=== PATIENT | male | born 1955 | race Caucasian/White ===

== ENCOUNTER 2019-08-13 12:54 | Emergency (ER) | payer BC ==
[~2019-08-13] VITALS: Ht 182.9 cm; Wt 77.1 kg
--- NOTE | 2019-08-13 13:11 | PHYS DOC ---
Adult General Chief Complaint Chief Complaint: NEURO SYMPTOMS/DEFICITS HPI HPI Patient is a 63-year-old male who presents via EMS with report of altered mental status and neuro deficits that are acute. Last known normal was last night at about 10 PM. found him lying on the floor at about 11 AM this morning and was unable to speak or move his extremities. Additional history is limited as patient is nonverbal and unable to follow commands. Patient reportedly did have recent temporal artery biopsy to evaluate for temporal arteritis.[] Review of Systems Review of Systems Constitutional: No report of fever[] Respiratory: No report of shortness of breath [] Cardiovascular: No additional information not addressed in HPI [] Neurologic: Positive right sided weakness and mental status changes [] Able to fully assess review of systems due to patient mental status. Current Medications Current Medications Current Medications Medications (Trade) Dose Ordered Sig/Alisson Start Time Stop Time Status Last Admin Dose Admin Info (CONTRAST GIVEN -- Rx MONITORING) 1 each PRN DAILY PRN 08/13/19 14:30 08/15/19 14:29 Iohexol (Omnipaque 300 Mg/ml) 75 ml 1X ONCE 08/13/19 14:15 08/13/19 14:16 DC 08/13/19 14:40 75 ML Sodium Chloride 1,000 ml @ 100 mls/hr Q10H 08/13/19 13:15 08/13/19 23:14 08/13/19 14:32 100 MLS/HR Allergies Allergies Allergies Coded Allergies Type Severity Reaction Last Updated Verified ciprofloxacin Allergy Intermediate Unknown 08/13/19 Yes Physical Exam Physical Exam Constitutional: Awake, alert, nonverbal, non-toxic appearance. [] HENT: Normocephalic, atraumatic, bilateral external ears normal, oropharynx moist, no oral exudates, nose normal. [] Eyes: PERRLA, EOMI, conjunctiva normal, no discharge. Nystagmus noted on exam. [] Neck: Normal range of motion, no tenderness, supple. [] Cardiovascular: Regular rate and rhythm[] Lungs & Thorax: Bilateral breath sounds clear to auscultation [] Abdomen: Bowel sounds normal, soft, no tenderness. [] Skin: Warm, dry, no erythema, no rash. [] Extremities: No tenderness, no cyanosis, no clubbing, ROM intact. [] Neurologic: Awake and alert. There is a right-sided tanisha-neglect. Patient having difficulty with following any commands. 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 Unable to further assess neurological status as patient is unable to follow commands and is nonverbal. [] Current Patient Data Vital Signs Vital Signs Date Time Temp Pulse Resp B/P (MAP) Pulse Ox O2 Delivery O2 Flow Rate FiO2 08/13/19 12:54 99.2 56 18 158/55 (89) 99 Room Air 99.2 Lab Values Laboratory Tests Test 08/13/19 13:02 08/13/19 13:09 08/13/19 13:25 Glucose (Fingerstick) 90 mg/dL (70-99) POC Hemoglobin 10.9 g/dL (14-18) L POC Hematocrit 32 % (37-52) L POC Sodium 135 mmol/L (135-145) POC Potassium 4.8 mmol/L (3.5-5.0) POC Chloride 102 mmol/L (98-110) POC Total CO2 26 mmol/L (23-32) Anion Gap 12 mmol/L (6-14) 5 (6-14) L POC Blood Urea Nitrogen 37 mg/dL (8-26) H POC Creatinine 0.8 mg/dL (0.5-1.4) Glucose Level 104 mg/dL (70-99) H 110 mg/dL (70-99) H POC Ionized Calcium (Dk) 1.02 mmol/L (1.13-1.32) L White Blood Count 12.6 x10^3/uL (4.0-11.0) H Red Blood Count 4.22 x10^6/uL (4.30-5.70) L Hemoglobin 11.0 g/dL (13.0-17.5) L Hematocrit 34.4 % (39.0-53.0) L Mean Corpuscular Volume 82 fL (79-100) Mean Corpuscular Hemoglobin 26 pg (25-35) Mean Corpuscular Hemoglobin Concent 32 g/dL (31-37) Red Cell Distribution Width 17.1 % (11.5-14.5) H Platelet Count 228 x10^3/uL (140-400) Neutrophils (%) (Auto) 90 % (31-73) H Lymphocytes (%) (Auto) 6 % (24-48) L Monocytes (%) (Auto) 4 % (0-9) Eosinophils (%) (Auto) 0 % (0-3) Basophils (%) (Auto) 0 % (0-3) Neutrophils # (Auto) 11.4 x10^3/uL (1.8-7.7) H Lymphocytes # (Auto) 0.8 x10^3/uL (1.0-4.8) L Monocytes # (Auto) 0.4 x10^3/uL (0.0-1.1) Eosinophils # (Auto) 0.0 x10^3/uL (0.0-0.7) Basophils # (Auto) 0.0 x10^3/uL (0.0-0.2) Segmented Neutrophils % 82 % (35-66) H Band Neutrophils % 2 % (0-9) Lymphocytes % 11 % (24-48) L Monocytes % 5 % (0-10) Platelet Estimate Adequate (ADEQUATE) Anisocytosis Slight Prothrombin Time 13.9 SEC (11.7-14.0) Prothrombin Time INR 1.1 (0.8-1.1) Activated Partial Thromboplast Time 26 SEC (24-38) Sodium Level 139 mmol/L (136-145) Potassium Level 4.1 mmol/L (3.5-5.1) Chloride Level 102 mmol/L (98-107) Carbon Dioxide Level 32 mmol/L (21-32) Blood Urea Nitrogen 30 mg/dL (8-26) H Creatinine 1.0 mg/dL (0.7-1.3) Estimated GFR (Cockcroft-Gault) 75.7 BUN/Creatinine Ratio 30 (6-20) H Lactic Acid Level 2.5 mmol/L (0.4-2.0) H Calcium Level 8.8 mg/dL (8.5-10.1) Magnesium Level 2.0 mg/dL (1.8-2.4) Total Bilirubin 0.9 mg/dL (0.2-1.0) Aspartate Amino Transferase (AST) 21 U/L (15-37) Alanine Aminotransferase (ALT) 54 U/L (16-63) Alkaline Phosphatase 130 U/L (46-116) H Troponin I Quantitative 0.041 ng/mL (0.000-0.055) Total Protein 6.6 g/dL (6.4-8.2) Albumin 2.5 g/dL (3.4-5.0) L Albumin/Globulin Ratio 0.6 (1.0-1.7) L Ethyl Alcohol Level < 10 mg/dL (0-10) Laboratory Tests 08/13/19 13:25 Laboratory Tests 08/13/19 13:09 08/13/19 13:25 EKG EKG [] Radiology/Procedures Radiology/Procedures [] Impressions: PROCEDURE: CT HEAD WO CONTRAST CT Head W/O Contrast: History: Right-sided weakness Comparison: none Axial images were obtained without contrast. There is wedge-shaped hypoattenuation and loss of the ramos-white matter distinction middle cerebral artery territory consistent with a massive stroke. There is mild mass effect with effacement of most of the sulci and effacement of much of the perimesencephalic cephalic cistern. There is mild 4 mm [id number] midline shift. There is no extra-axial fluid collections hydrocephalus or bleed. Impression: 1. Massive acute left MCA territory infarct. 2. Diffuse edema with swelling and left to right midline shift. End impression The ER physician was notified immediately and I have related these findings to the nurse practitioner. PQRS Compliance Statement: One or more of the following individualized dose reduction techniques were utilized for this examination: 1. Automated exposure control 2. Adjustment of the mA and/or kV according to patient size 3. Use of iterative reconstruction technique FOR INTERNAL CODING PURPOSES Critical result: Findings discussed with the emergency department. RESULT CODE: (C) Electronically signed by: Jan Saunders III, MD (08/13/2019 2:12 PM) [facility] [place] PROCEDURE: CT ANGIOGRAPHY HEAD AND NECK EXAM: CT angiogram of the head and neck with intravenous contrast. HISTORY: Cerebral infarction. TECHNIQUE: Computed tomographic images of the head and neck were obtained following the administration of 75 cc Omnipaque 300 intravenous contrast. Three-dimensional maximum intensity projection images obtained. *One or more of the following individualized dose reduction techniques were utilized for this examination: 1. Automated exposure control. 2. Adjustment of the mA and/or kV according to patient size. 3. Use of iterative reconstruction technique. COMPARISON: Noncontrast head CT obtained on the same date. FINDINGS: There is thrombus within the left internal carotid artery terminus and left M1 segment and proximal A1 segment. There is relative decreased flow distal to the thrombus within the left middle cerebral artery branches. There is normal flow within the distal left A1 segment an within the A2 segment likely due to contralateral flow via a patent anterior communicating artery. There is hypodensity throughout the left cerebral hemisphere due to an acute infarct. There is associated edema resulting in effacement of the left cerebral sulci, effacement of the left lateral ventricle and approximately 5 mm rightward midline shift. The aorta is normal in caliber. There is a standard aortic arch branching pattern. The carotid bifurcations are widely patent. The vertebral arteries are codominant and widely patent. There is a prominent right posterior communicating artery or right posterior cerebral artery. The left posterior communicating artery is patent. There may be thrombus at the origin of this vessel. There is normal flow within the left greater than right posterior cerebral arteries. No intracranial hemorrhage is seen. The orbits are unremarkable. There are maxillary sinus mucous tension cysts. The mastoid air cells are clear. There is no pneumothorax. There is no lymphadenopathy. The airways midline and widely patent. There are degenerative changes involving the cervical spine. This is associated with mild to moderate bilateral foraminal stenosis at C5-C6 and mild to moderate left foraminal stenosis at C6-C7. IMPRESSION: 1. Distal left internal carotid artery thrombus at the ICA terminus and involving the proximal left A1 segment and left M1 segment. There is a small amount of contrast beyond the thrombus into attenuated left middle cerebral artery branches with low flow and there is reconstitution of flow within the distal A1 segment due to contralateral flow via an anterior communicating artery. The thrombus appears to also involve the origin of the left posterior communicating artery. 2. Large acute infarct within the left cerebral hemisphere. No hemorrhagic transformation is seen. There is associated effacement of the cerebral sulci and lateral ventricle and slight rightward midline shift due to edema. 3. No evidence of additional hemodynamically significant stenosis or occlusion. Findings were discussed with Dr. Lopez at 1430 on 08/13/2019. FOR INTERNAL CODING PURPOSES RESULT CODE: (C) Course & Med Decision Making Course & Med Decision Making Pertinent Labs and Imaging studies reviewed. (See chart for details) Patient moved to room upon arrival was evaluated by ER medical staff after which a stroke workup was initiated on this patient. Initial CT demonstrated findings consistent with massive CVA. Orders were entered for CTA of the head and neck which demonstrated findings of large thrombus in the M1 and A1 segments of the ICA on the left. transfer Center was consulted and Dr. Bowser indicates the patient is not candidate for thrombectomy. Dr. Bone will accept patient in transfer. A total of 50 minutes of critical care time has been spent on this patient exclusive of separately billable procedures and was inclusive of direct wwiw-bj-xlys care with this patient, discussion of patient's case with family and consultants, ordering and reviewing of both radiologic and laboratory studies, and finally on documentation of this patient's medical record. Dragon Disclaimer Dragon Disclaimer This electronic medical record was generated, in whole or in part, using a voice recognition dictation system. Departure Departure Impression: Primary Impression: CVA (cerebral vascular accident) Disposition: 02 TRANSFER [facility] HOS[facility] Condition: GUARDED Problem Qualifiers Primary Impression: CVA (cerebral vascular accident) CVA mechanism: thrombosis Precerebral and cerebral artery: middle cerebral artery Laterality of affected vessel: left Qualified Codes: I63.312 - Cerebral infarction due to thrombosis of left middle cerebral artery MARTHA LOPEZ Jr. DO Aug 13, 2019 13:11
[2019-08-13 13:14] LABS: CREATININE ISTAT 0.8 mg/dL (0.5-1.4); HEMOGLOBIN ISTAT 10.9 g/dL (14-18); ION CA ISTAT 1.02 mmol/L (1.13-1.32); POTASSIUM ISTAT 4.8 mmol/L (3.5-5.0)
[2019-08-13] MEDS: IV NORMAL SALINE 1000ML BAG 1,000 ML IV SCH ×2 (13:15→14:32)
--- NOTE | 2019-08-13 13:22 | RAD ---
PORTABLE CHEST 1V Clinical History: Technique: AP view of the chest was obtained at 08/13/2019 12:59 PM. Comparison: None. Findings: The cardiomediastinal silhouette is normal. The pulmonary vasculature is normal. The lungs and pleural margins are clear. Impression: No evidence of an acute cardiopulmonary process. Electronically signed by: Jan Saunders III, MD (08/13/2019 1:19 PM) [facility] [place] [facility] [place]
[2019-08-13 13:37] LABS: BASO % 0 % (0-3); EOS % 0 % (0-3); HEMATOCRIT 34.4 % (39.0-53.0); LYMPH # 0.8 x10^3/uL (1.0-4.8); LYMPH % 6 % (24-48); MEAN CORPUSCULAR HEMOGLOBIN 26 pg (25-35); MEAN CORPUSCULAR HGB CONC 32 g/dL (31-37); MEAN CORPUSCULAR VOLUME 82 fL (79-100); MONO # 0.4 x10^3/uL (0.0-1.1); MONO % 4 % (0-9); NEUT # 11.4 x10^3/uL (1.8-7.7); NEUT % 90 % (31-73); PLATELET COUNT 228 x10^3/uL (140-400); RED BLOOD COUNT 4.22 x10^6/uL (4.30-5.70); RED CELL DISTRIBUTION WIDTH 17.1 % (11.5-14.5); WHITE BLOOD COUNT 12.6 x10^3/uL (4.0-11.0)
[2019-08-13 13:57] LABS: PROTHROMBIN TIME PATIENT 13.9 SEC (11.7-14.0)
[2019-08-13 14:05] LABS: ALBUMIN 2.5 g/dL (3.4-5.0); ALBUMIN/GLOBULIN RATIO 0.6 (1.0-1.7); CALCIUM 8.8 mg/dL (8.5-10.1); GFR 75.7; POTASSIUM 4.1 mmol/L (3.5-5.1); TOTAL BILIRUBIN 0.9 mg/dL (0.2-1.0); TOTAL PROTEIN 6.6 g/dL (6.4-8.2)
[2019-08-13] MEDS ORDERED: IOHEXOL 300 MG/ML 100ML VIAL. IV ONE (14:15)
--- NOTE | 2019-08-13 14:15 | RAD ---
CT Head W/O Contrast: History: Right-sided weakness Comparison: none Axial images were obtained without contrast. There is wedge-shaped hypoattenuation and loss of the ramos-white matter distinction middle cerebral artery territory consistent with a massive stroke. There is mild mass effect with effacement of most of the sulci and effacement of much of the perimesencephalic cephalic cistern. There is mild 4 mm jwba-vw-lrrnm midline shift. There is no extra-axial fluid collections hydrocephalus or bleed. Impression: 1. Massive acute left MCA territory infarct. 2. Diffuse edema with swelling and left to right midline shift. End impression The ER physician was notified immediately and I have related these findings to the nurse practitioner. PQRS Compliance Statement: One or more of the following individualized dose reduction techniques were utilized for this examination: 1. Automated exposure control 2. Adjustment of the mA and/or kV according to patient size 3. Use of iterative reconstruction technique FOR INTERNAL CODING PURPOSES Critical result: Findings discussed with the emergency department. RESULT CODE: (C) Electronically signed by: Jan Saunders III, MD (08/13/2019 2:12 PM) [facility] [place]
[2019-08-13 14:18] LABS: % BANDS 2 % (0-9); % LYMPHS 11 % (24-48); % MONOS 5 % (0-10); % SEGS 82 % (35-66); ANISOCYTOSIS SLIGHT; PLT ESTIMATE ADEQUATE (ADEQUATE)
[2019-08-13] MEDS ORDERED: CONTRAST GIVEN. MC PRN (14:30)
--- NOTE | 2019-08-13 14:35 | RAD ---
EXAM: CT angiogram of the head and neck with intravenous contrast. HISTORY: Cerebral infarction. TECHNIQUE: Computed tomographic images of the head and neck were obtained following the administration of 75 cc Omnipaque 300 intravenous contrast. Three-dimensional maximum intensity projection images obtained. *One or more of the following individualized dose reduction techniques were utilized for this examination: 1. Automated exposure control. 2. Adjustment of the mA and/or kV according to patient size. 3. Use of iterative reconstruction technique. COMPARISON: Noncontrast head CT obtained on the same date. FINDINGS: There is thrombus within the left internal carotid artery terminus and left M1 segment and proximal A1 segment. There is relative decreased flow distal to the thrombus within the left middle cerebral artery branches. There is normal flow within the distal left A1 segment an within the A2 segment likely due to contralateral flow via a patent anterior communicating artery. There is hypodensity throughout the left cerebral hemisphere due to an acute infarct. There is associated edema resulting in effacement of the left cerebral sulci, effacement of the left lateral ventricle and approximately 5 mm rightward midline shift. The aorta is normal in caliber. There is a standard aortic arch branching pattern. The carotid bifurcations are widely patent. The vertebral arteries are codominant and widely patent. There is a prominent right posterior communicating artery or right posterior cerebral artery. The left posterior communicating artery is patent. There may be thrombus at the origin of this vessel. There is normal flow within the left greater than right posterior cerebral arteries. No intracranial hemorrhage is seen. The orbits are unremarkable. There are maxillary sinus mucous tension cysts. The mastoid air cells are clear. There is no pneumothorax. There is no lymphadenopathy. The airways midline and widely patent. There are degenerative changes involving the cervical spine. This is associated with mild to moderate bilateral foraminal stenosis at C5-C6 and mild to moderate left foraminal stenosis at C6-C7. IMPRESSION: 1. Distal left internal carotid artery thrombus at the ICA terminus and involving the proximal left A1 segment and left M1 segment. There is a small amount of contrast beyond the thrombus into attenuated left middle cerebral artery branches with low flow and there is reconstitution of flow within the distal A1 segment due to contralateral flow via an anterior communicating artery. The thrombus appears to also involve the origin of the left posterior communicating artery. 2. Large acute infarct within the left cerebral hemisphere. No hemorrhagic transformation is seen. There is associated effacement of the cerebral sulci and lateral ventricle and slight rightward midline shift due to edema. 3. No evidence of additional hemodynamically significant stenosis or occlusion. Findings were discussed with Dr. Lopez at 1430 on 08/13/2019. FOR INTERNAL CODING PURPOSES RESULT CODE: (C) Electronically signed by: Nicolasa Vieira MD (08/13/2019 2:32 PM) [facility]
[2019-08-13 15:30] VITALS: BP 161/72
[2019-08-13] MEDS ORDERED: ASPIRIN RECTAL 300 MG SUPP. PR STA (15:30)
[2019-08-13] MEDS ORDERED: MANNITOL 25% 12.5 G/50 ML VIAL. IV ONE (15:45)
--- NOTE | 2019-08-14 06:43 | EKG ---
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
== END 2019-08-13 16:30 | disposition short-term general hospital (02) ==
LOC: ER 12:54
DX: I63.312 Cerebral infarction due to thrombosis of left middle cerebral artery (principal); R41.82 Altered mental status, unspecified; Z88.1 Allergy status to other antibiotic agents
CPT/HCPCS: 36415; 51702; 70450; 70496; 70498; 71045; 80047; 80053; 82962; 83605; 83735; 84484; 85007; 85025; 85610; 85730; 93005; 96361; 96374; 99291; G0480; J2150; J7030; Q9967